=== PATIENT | male | born 1970 | race African-American/Black ===

== ENCOUNTER 2023-06-22 17:46 | Emergency (ER) | payer SELFPAY ==
[~2023-06-22] VITALS: Ht 188 cm; Wt 91.0 kg
[2023-06-22 17:50] VITALS: BP 150/102; PULSE 97; RESP 18; TEMP 99.5; O2SAT 97
[2023-06-22] MEDS ORDERED: HALOPERIDOL LACTATE 5MG/ML VIAL IM ONE (18:30)
[2023-06-22] MEDS ORDERED: DIPHENHYDRAMINE 50MG/ML VIAL IM ONE (18:30)
== END 2023-06-23 00:36 | disposition home or self-care (01) ==
LOC: ER 18:05
DX: F10.129 Alcohol abuse with intoxication, unspecified (principal); R41.82 Altered mental status, unspecified; Y90.0 Blood alcohol level of less than 20 mg/100 ml
CPT/HCPCS: 99285; 70450; 96372; J1200; J1630